=== PATIENT | female | born 1965 | race Caucasian/White ===

== ENCOUNTER 2020-04-12 10:43 | Emergency (ER) | payer OTHER ==
[~2020-04-12] VITALS: Ht 157.5 cm; Wt 52.6 kg
[2020-04-12] MEDS ORDERED: MULTIPLE VITAM1 EACH (10:58)
== END 2020-04-12 17:55 | disposition home or self-care (01) ==
LOC: ER 10:43
DX: R31.29 Other microscopic hematuria (principal); R10.32 Left lower quadrant pain

== ENCOUNTER 2022-05-02 10:36 | Emergency (ER) | payer OTHER ==
[~2022-05-02] VITALS: Ht 157.5 cm; Wt 52.2 kg
[~2022-05-02 10:36] MED LIST: MULTIPLE VITAM1 EACH
== END 2022-05-02 14:55 | disposition home or self-care (01) ==
LOC: ER 10:36
DX: J01.00 Acute maxillary sinusitis, unspecified (principal); R42 Dizziness and giddiness; R11.10 Vomiting, unspecified; Z20.822 Contact with and (suspected) exposure to COVID-19